=== PATIENT | male | born 1955 | race Caucasian/White ===

== ENCOUNTER 2017-05-16 21:22 | Emergency (ER) | payer BC ==
[2017-05-16] MEDS ORDERED: NS 0.9% 1000 ML* 2,000 ML IV ONE (22:05)
[2017-05-16] MEDS ORDERED: Ondansetron INJ* 2 MG/ML VIAL IV ONE (22:11)
[2017-05-16] MEDS ORDERED: Morphine INJ* 4 MG/ML 1 ML CARPUJECT IV ONE (22:11)
[2017-05-16] MEDS ORDERED: Albuterol 2.5 MG/3 ML NEB.SOL* (0.083%) INH ONE (22:15)
[2017-05-16 22:42] LABS: Albumin 3.8 g/dL (3.2-5.2); BUN/Creatinine Ratio 21.5 (8-20); C Reactive Protein 7.3 mg/L (< 5.00); Calcium 9.1 mg/dL (8.6-10.3); EGFR African American 57.8 (>60); Globulin 3.3 g/dL (2-4); Magnesium 1.7 mg/dL (1.9-2.7); Potassium 4.4 mmol/L (3.5-5.0); Total Bilirubin 0.6 mg/dL (0.2-1.0); Total Protein 7.1 g/dL (6.4-8.9)
[2017-05-16 22:43] LABS: Troponin I 0.01 ng/mL (<0.04)
[2017-05-16 23:06] LABS: Add Diff/Slide Review? Slide Review Added; Hematocrit 42 % (42-52); Hemoglobin 14.1 g/dl (14.0-18.0); Mean Corpuscular HGB Conc 34 g/dl (31-36); Mean Corpuscular Hemoglobin 37 pg (27-31); Mean Platelet Volume 7 um3 (7.4-10.4); Red Blood Count 3.78 10^6/ul (4.0-5.4); Red Cell Distribution Width 15 % (10.5-15); White Blood Count 10.8 10^3/ul (3.5-10.8)
[2017-05-16 23:10] LABS: Mean Corpuscular Volume 110 fL (80-94)
[2017-05-16] MEDS ORDERED: Piperacillin/Tazobac ADVAN(*) 3.375 GM in NS 0.9% 100 ML* 100 ML IVPB ONE (23:10)
--- NOTE | 2017-05-16 23:10 | ED ---
Renetta Alexis Gabriel, scribed for Benjamin Perez MD on 05/16/17 at 2203 . Abdominal Pain/Male - HPI Summary HPI Summary: This patient is a 61 year old M presenting to [facility] accompanied by daughter and son with a chief complaint of ABD since 830 this morning. He states the pain is in his epigastric region but radiates to his flanks. The patient rates the pain 5/10 in severity currently but has intermittent episodes every 5 minutes where the pain raises to 10/10. Patient reports vomiting, tenderness to palpation, decreased appetite, and diarrhea. Patient denies ABD distension, dysuria, trouble urinating, increased SOB from baseline, and fever. - History of Current Complaint Chief Complaint: EDAbdPain Stated Complaint: ABD PAIN Time Seen by Provider: 05/16/17 21:46 Hx Obtained From: Patient Onset/Duration: Lasting Hours - 830, Still Present Timing: Intermittent Severity Currently: Moderate Pain Intensity: 6 Pain Scale Used: 0-10 Numeric Location: Epigastric Radiates to: Flank Associated Signs And Symptoms: Positive: Negative - ABD distension, dysuria, trouble urinating, increased SOB from baseline, and fever, Other - vomiting, tender to palpation, decreased appetite, and diarrhea - Allergies/Home Medications Allergies/Adverse Reactions: Allergies Allergy/AdvReac Type Severity Reaction Status Date / Time No Known Allergies Allergy Verified 05/16/17 21:37 PMH/Surg Hx/FS Hx/Imm Hx Previously Healthy: No Endocrine/Hematology History: Denies: Hx Diabetes Cardiovascular History: Reports: Hx Hypercholesterolemia, Hx Hypertension - Surgical History Surgery Procedure, Year, and Place: Appendectomy when he was 8 Infectious Disease History: No Infectious Disease History: Denies: Traveled Outside the [place] in Last 30 Days - Family History Known Family History: Positive: Other - Prostate cancer (father) - Social History 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 Alcohol Use: Daily Hx Substance Use: No Hx Tobacco Use: No Review of Systems Negative: Fever Negative: Shortness Of Breath Gastrointestinal: Negative - ABD distension, Other - decreased appetite Positive: Abdominal Pain, Vomiting, Diarrhea Genitourinary: Negative - trouble urinating Negative: dysuria Positive: Other - tenderness to palpation All Other Systems Reviewed And Are Negative: Yes Physical Exam Triage Information Reviewed: Yes Vital Signs On Initial Exam: Initial Vitals Temp Pulse Resp BP Pulse Ox 97.5 F 124 18 131/85 97 05/16/17 21:34 05/16/17 21:34 05/16/17 21:34 05/16/17 21:34 05/16/17 21:34 Vital Signs Reviewed: Yes Appearance: Positive: Ill-Appearing, Pain Distress - mild Skin: Positive: Warm, Skin Color Reflects Adequate Perfusion Head/Face: Positive: Normal Head/Face Inspection Eyes: Positive: EOMI Neck: Positive: Supple Respiratory/Lung Sounds: Positive: Clear to Auscultation, Breath Sounds Present Cardiovascular: Positive: RRR. Negative: Murmur Abdomen Description: Positive: Distended - tender diffusely Musculoskeletal: Positive: Strength/ROM Intact Neurological: Positive: Sensory/Motor Intact, Alert, Oriented to Person Place, Time, CN Intact II-III Psychiatric: Positive: Normal - Familia Coma Scale Best Eye Response: 4 - Spontaneous Best Motor Response: 6 - Obeys Commands Best Verbal Response: 5 - Oriented Diagnostics - Vital Signs Vital Signs Temp Pulse Resp BP Pulse Ox 05/16/17 21:36 123/72 97 05/16/17 21:34 97.5 F 124 18 131/85 97 - Laboratory Lab Results: Lab Results 05/16/17 05/16/17 05/16/17 Range/Units 22:10 22:10 22:10 INR (Anticoag Therapy) 0.86 L (0.89-1.11) APTT 28.6 (26.0-36.3) seconds Sodium 131 L (133-145) mmol/L Potassium 4.4 (3.5-5.0) mmol/L Chloride 101 (101-111) mmol/L Carbon Dioxide 21 L (22-32) mmol/L Anion Gap 9 (2-11) mmol/L BUN 34 H (6-24) mg/dL Creatinine 1.58 H (0.67-1.17) mg/dL Est GFR ( Amer) 57.8 (>60) Est GFR (Non-Af Amer) 45.0 (>60) BUN/Creatinine Ratio 21.5 H (8-20) Glucose 114 H (70-100) mg/dL Lactic Acid 0.7 (0.5-2.0) mmol/L Calcium 9.1 (8.6-10.3) mg/dL Magnesium 1.7 L (1.9-2.7) mg/dL Total Bilirubin 0.60 (0.2-1.0) mg/dL AST 21 (13-39) U/L ALT 21 (7-52) U/L Alkaline Phosphatase 50 (34-104) U/L Troponin I 0.01 (<0.04) ng/mL C-Reactive Protein 7.30 H (< 5.00) mg/L Total Protein 7.1 (6.4-8.9) g/dL Albumin 3.8 (3.2-5.2) g/dL Globulin 3.3 (2-4) g/dL Albumin/Globulin Ratio 1.2 (1-3) Lipase 74 (11.0-82.0) U/L Result Diagrams: 05/16/17 22:10 Lab Statement: Any lab studies that have been ordered have been reviewed, and results considered in the medical decision making process. - EKG 21:42 Cardiac Rate: NL EKG Rhythm: Sinus Tachycardia - 115 BPM EKG Interpretation: No STEMI Abdominal Pain Fem Course/Dx - Course Course Of Treatment: 61 yr old with distended and tender abdomen. Covering with antibiotics. - Diagnoses Provider Diagnoses: Abdominal pain, diffuse Discharge - Discharge Plan Condition: Good Disposition: OTHER Discharge Disposition Comment: sing out to Dr Slater with work up pending, and dispo. Referrals: No Primary Care Phys,NOPCP [Primary Care Provider] - The documentation as recorded by the Renetta lr Gabriel accurately reflects the service I personally performed and the decisions made by , Benjamin Perez MD.
[2017-05-17 00:01] LABS: Macrocytosis 2+
[2017-05-17] MEDS ORDERED: metroNIDAZOLE IV 500 MG/100ML* 500 MG/100 ML BAG IVPB ONE (00:40)
[2017-05-17 00:52] LABS: Urine Bacteria Absent (Absent); Urine Bilirubin Negative (Negative); Urine Glucose Negative (Negative); Urine Nitrite Negative (Negative)
[2017-05-17] MEDS ORDERED: HYDROmorphone INJ* 2 MG/ML CARPUJECT SYRINGE IV SLOW PU ONE (00:53)
--- NOTE | 2017-05-17 02:31 | ED ---
Brian Alexis Alfonso, scribed for Live Slater MD on 05/16/17 at 2346 . Progress - Progress Note Progress Note: This patient was signed out from Dr. Perez, pending disposition, awaiting CXR and CT A/P. CXR reveals no acute pathology on my preliminary reading. CT A/P reveals, per radiologist, ascites and mesenteric stranding likely related to enteritis. Bilateral hydronephrosis is likely related to bladder distention and vesicoureteral reflux. Correlation with history and urinalysis is recommended. Enlargement of the caudate lobe of the liver may reflect early cirrhotic change. Correlation with hepatic function is recommended. ED physician has reviewed this radiology report and agrees. Reevaluation at 2344: Pain slightly improved with medication. Feels the pain might be returning. No N/V. Slight tachycardia at 106 BPM. Will administer fluids and abx, and then reevaluate. The patients condition is stable and will be discharged to home with Dx of enteritis/ colitis. Course/Dx - Diagnoses Provider Diagnoses: Enteritis, Colitis The documentation as recorded by the Brian lr Alfonso accurately reflects the service I personally performed and the decisions made by , Live Slater MD.
[2017-05-17 02:57] VITALS: BP 104/55
--- NOTE | 2017-05-17 09:19 | RAD ---
INDICATION: Abdominal pain COMPARISON: None. TECHNIQUE: Single AP portable view of the chest was obtained. FINDINGS: Image quality is compromised due to the relative inferiority of a portable chest x-ray. The heart and mediastinum exhibit normal size and contour. The lungs are grossly clear. There is no evidence of a large pleural effusion. Visualized bones are normal for the patient's age. IMPRESSION: No radiographic evidence for acute cardiopulmonary abnormality on this portable chest x-ray.
--- NOTE | 2017-05-17 09:35 | RAD ---
CLINICAL HISTORY: Abdominal pain COMPARISON: None TECHNIQUE: Noncontrast CT examination of the abdomen and pelvis from the lung bases through the initial tuberosities. FINDINGS: VISUALIZED LUNG BASES: The visualized lung bases are grossly clear. There is no pleural effusion. ABDOMEN AND PELVIS: Evaluation of the solid organs and vasculature is limited without intravenous contrast. There is homogenous hypoattenuation of the liver without suspicious focal mass or surface irregularity. There is a mild amount of perihepatic fluid. There is a small amount of perisplenic fluid around the otherwise normal-appearing spleen. The pancreas and adrenal glands are grossly normal in appearance. The gallbladder is normal. The right kidney is normal in appearance without focal mass, calcification or signs of hydronephrosis. There is a [id number] amount of hydronephrosis of the left renal collecting system and left ureter. The urinary bladder is massively dilated measuring 14.1 x 16.8 cm in the axial plane and 25.3 cm in greatest cephalocaudal dimension. This yields an approximate volume of 4.825 L. Evaluation of the gastrointestinal tract is limited without oral contrast. There is top normal dilatation of the small bowel in the right upper abdomen with questionable presence of bowel wall thickening up to 6 mm and surrounding infiltration of the mesenteric fat (axial image 64 and 63 for example). The appendix is not discretely visualized. There is no gross retroperitoneal or mesenteric lymphadenopathy. There is coarse calcification in the prostate gland. The mildly calcified abdominal aorta and iliac arteries are normal in course and diameter. Degenerative changes include multilevel loss of intervertebral disc height involving the lower thoracic and lumbar spine.There are no sinister bone lesions. IMPRESSION: 1. There is massive enlargement of the urinary bladder yielding an approximate volume of 4.825 L with moderate hydroureteronephrosis of the left kidney and ureter. This constellation of findings is consistent with either neurogenic bladder or ureteral outlet obstruction with subsequent left ureteral reflux. Please correlate to signs and symptoms of pyelonephritis which is not reliably depicted on a noncontrast CT examination. 2. Mild ascites. 3. Questionable small bowel wall thickening located at the right upper abdomen which could be the consequence of enteritis or perhaps incomplete obstruction caused by the dilated urinary bladder. 4. Likely hepatic steatosis or other chronic infiltrative disease of the liver. 5. Additional chronic and degenerative changes described in the body the report.
== END 2017-05-17 03:12 ==
LOC: ED 21:22
DX: R10.9 Unspecified abdominal pain (principal); I10 Essential (primary) hypertension; E78.00 Pure hypercholesterolemia, unspecified
CPT/HCPCS: 36415; 71010; 74176; 80053; 81003; 81015; 82272; 83605; 83690; 83735; 84484; 85025; 85610; 85730; 86140; 86850; 86900; 86901; 87040; 93005; 94640; 96360; 96374; 96375; 99283; J1170; J2270; J2405; J2543